=== PATIENT | male | born 1995 | race Caucasian/White ===

== ENCOUNTER 2020-04-25 19:36 | Inpatient (IN) | payer BC, OTHER ==
--- NOTE | 2020-04-25 20:27 | ED ---
Psych HPI - General Chief Complaint: Psychiatric Symptoms Stated Complaint: Mental Health Time Seen by Provider: 04/25/20 19:57 Source: patient, family Mode of arrival: ambulatory - History of Present Illness Initial Comments: 24-year-old male patient presents to the emergency department today for evaluation of suicidal ideation. Patient states he has been quite depressed for the last few months. States over the last 2 weeks he has been having increased thoughts of suicide. 2 days ago patient did wrap about around his neck and cinched it and went to sleep. Patient states that he must have had a tight enough that he woke up couple hours later so he took it off. Patient states that over the last 2 days to thoughts of suicide have been increasing. He states he has many ways that he could do about has no particular plan. Patient is not currently seeing a counselor or psychiatrist. Does not take any medications. Patient denies any alcohol use. Does admit to smoking marijuana. Denies any current physical symptoms or concerns. Patient denies any recent rash, fever, chills, cough, shortness of breath, chest pain, abdominal pain, nausea, vomiting, diarrhea, constipation, back pain, numbness, tingling, dizziness, weakness, hematuria, dysuria, urinary urgency, urinary frequency, headache, visual changes, or any other complaints. - Related Data Home Medications Medication Instructions Recorded Confirmed No Known Home Medications 06/07/15 06/07/15 Allergies Allergy/AdvReac Type Severity Reaction Status Date / Time No Known Allergies Allergy Verified 06/07/15 18:20 Review of Systems ROS Statement: Those systems with pertinent positive or pertinent negative responses have been documented in the HPI. ROS Other: All systems not noted in ROS Statement are negative. Past Medical History Past Medical History: No Reported History History of Any Multi-Drug Resistant Organisms: None Reported Past Surgical History: No Surgical Hx Reported Past Psychological History: No Psychological Hx Reported Smoking Status: Never smoker Past Alcohol Use History: None Reported Past Drug Use History: None Reported General Exam Limitations: no limitations General appearance: alert, in no apparent distress, other (This is a well- developed, well-nourished adult male patient in no acute distress. Vital signs upon presentation are temperature 98.0F, pulse 79, respirations 18, blood pressure 149/94, pulse ox 99% on room air.) Eye exam: Present: normal appearance, PERRL, EOMI. Absent: scleral icterus, conjunctival injection, periorbital swelling ENT exam: Present: normal exam, normal oropharynx, mucous membranes moist Respiratory exam: Present: normal lung sounds bilaterally. Absent: respiratory distress, wheezes, rales, rhonchi, stridor Cardiovascular Exam: Present: regular rate, normal rhythm, normal heart sounds. Absent: systolic murmur, diastolic murmur, rubs, gallop, clicks GI/Abdominal exam: Present: soft, normal bowel sounds. Absent: distended, tenderness, guarding, rebound, rigid Neurological exam: Present: alert, oriented X3, CN II-XII intact Psychiatric exam: Present: depressed, suicidal ideation. Absent: homicidal ideation Skin exam: Present: warm, dry, intact, normal color. Absent: rash Course Vital Signs 04/25/20 19:46 Temperature 98.0 F Pulse Rate 79 Respiratory 18 Rate Blood Pressure 149/94 O2 Sat by Pulse 99 Oximetry Medical Decision Making - Medical Decision Making 24-year-old male patient presents to the emergency department today for evaluation of suicidal ideation. Physical examination is unremarkable. He was cleared medically and evaluated by emergency psychiatric services. It is felt that he would benefit from inpatient admission and will be transferred to a mental health unit. - Lab Data Lab Results 04/25/20 Range/Units 20:07 Urine Opiates Screen Not Detected (NotDetected) Ur Oxycodone Screen Not Detected (NotDetected) Urine Methadone Screen Not Detected (NotDetected) Ur Propoxyphene Screen Not Detected (NotDetected) Ur Barbiturates Screen Not Detected (NotDetected) U Tricyclic Antidepress Not Detected (NotDetected) Ur Phencyclidine Scrn Not Detected (NotDetected) Ur Amphetamines Screen Not Detected (NotDetected) U Methamphetamines Scrn Not Detected (NotDetected) U Benzodiazepines Scrn Not Detected (NotDetected) Urine Cocaine Screen Not Detected (NotDetected) U Marijuana (THC) Screen Detected H (NotDetected) Disposition Clinical Impression: Suicidal ideation Disposition: TRANSFER TO PSYCH HOSP/UNIT Condition: Serious Referrals: None,Stated [Primary Care Provider] - 1-2 days - Out of Hospital Transfer - Req. Specs Out of Hospital Transfer - Requested Specifics: [facility])
[2020-04-25 20:35] LABS: Amphetamine Screen,Urine Not Detected (NotDetected); Barbiturate Screen,Urine Not Detected (NotDetected); Benzodiazepines Screen,Urine Not Detected (NotDetected); Cocaine Screen,Urine Not Detected (NotDetected); Methadone Screen, Urine Not Detected (NotDetected); Opiate Screen,Urine Not Detected (NotDetected); Oxycodone Screen, Urine Not Detected (NotDetected); Phencyclidine Screen,Urine Not Detected (NotDetected); Tricyclic Antidepressant,Urine Not Detected (NotDetected); Urn Cannabinoid Scrn Detected (NotDetected)
[2020-04-25] MEDS ORDERED: LORazepam 1 MG TAB PO PRN (22:30)
[2020-04-25] MEDS ORDERED: ACETAMINOPHEN TAB 325 MG TAB PO PRN (22:30)
[2020-04-25] MEDS ORDERED: ZIPRASIDONE 20 MG VIAL IM PRN (22:30)
[2020-04-25] MEDS ORDERED: MAGNESIUM HYDROXIDE 2,400 MG/10 ML CUP PO PRN (22:30)
[2020-04-25] MEDS ORDERED: MAG HYDROX/AL HYDROX/SIMETH 30 ML CUP PO PRN (22:30)
[2020-04-26 08:04] LABS: Basophils # (A) 0.1 k/uL (0-0.2); Basophils % (A) 1 %; Eosinophils # (A) 0.2 k/uL (0-0.7); Eosinophils % (A) 2 %; HCT 49.7 % (39.0-53.0); HGB 16.4 gm/dL (13.0-17.5); Lymphocytes # (A) 2.5 k/uL (1.0-4.8); Lymphocytes % (A) 38 %; MCH 30.6 pg (25.0-35.0); MCHC 33.1 g/dL (31.0-37.0); MCV 92.6 fL (80.0-100.0); Mean Platelet Volume 7.2; Monocytes # (A) 0.3 k/uL (0-1.0); Monocytes % (A) 4 %; Neutrophils # (A) 3.5 k/uL (1.3-7.7); Neutrophils % (A) 53 %; Platelet Count 278 k/uL (150-450); RBC 5.37 m/uL (4.30-5.90); RDW 12.3 % (11.5-15.5); WBC 6.6 k/uL (3.8-10.6)
[2020-04-26 08:22] LABS: ALT 27 U/L (4-49); AST 25 U/L (17-59); African American GFR (CKD) >90 (>60 ml/min/1.73 sqM); Albumin 4.3 g/dL (3.5-5.0); Alkaline Phosphatase 64 U/L (38-126); Anion Gap 8 mmol/L; Blood Urea Nitrogen 11 mg/dL (9-20); Calcium 9.1 mg/dL (8.4-10.2); Carbon Dioxide 27 mmol/L (22-30); Chloride 105 mmol/L (98-107); Cholesterol 156 mg/dL (<200); Glucose 91 mg/dL (74-99); HDL Cholesterol 39 mg/dL (40-60); LDL Cholesterol,Calculated 98 mg/dL (0-99); Non-African American GFR(CKD) >90 (>60 ml/min/1.73 sqM); Potassium 4.3 mmol/L (3.5-5.1); Sodium 140 mmol/L (137-145); Total Bilirubin 0.8 mg/dL (0.2-1.3); Total Protein 6.7 g/dL (6.3-8.2); Triglycerides 97 mg/dL (<150)
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
[2020-04-26] MEDS: SERTRALINE 50 MG TAB PO SCH (12:08)
[2020-04-26] MEDS: PANTOPRAZOLE 40 MG TABLET PO SCH (12:08)
[2020-04-26] MEDS: MELATONIN 5 MG TABLET PO SCH (20:19)
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
[2020-04-27 07:08] VITALS: PULSE 64
[2020-04-27] MEDS: SERTRALINE 50 MG TAB PO SCH (08:27)
[2020-04-27] MEDS: PANTOPRAZOLE 40 MG TABLET PO SCH (08:27)
--- NOTE | 2020-04-27 09:34 | P.PN ---
Progress Note - Text Progress Note Date: 04/27/20 Interval History: Patient was seen [wandering the hallways] and was directable and agreeable to speak with engineering writer in the office. Patient continues to appear to be depressed however was more verbal today and claimed that he was feeling "a bit better" with regard to his mood. He continues to endorse some depressed thoughts and worthlessness. He states that he has been doing "a lot of reading on Zoloft" and had several questions for engineering writer about the side effects of the medications and concerns. Patient complains that he has been taking the medications as prescribed except for the melatonin as he states that he does not needed for sleep. He states that he has been speaking with other patients on the unit and has been going to groups and has been finding them helpful. He states that he is able sleep throughout the night. He asked about potential discharge. He claims it is a fair appetite. At this time patient denies any suicidal or homical ideations, intent or plan. Patient denies any auditory, visual hallucinations and denies any paranoia or delusions. Patient denies any side effects from the medications and has been compliant with meds. Mental Status Exam: General Appearance: Patient appears to be stated age is alert, directable, and attempts to cooperate. Patient appears to have poor hygiene and grooming. Behavior: Patient is seated without any agitated behavior. Depressed affect. Speech: Patient's speech is fluent and nonpressured. Soft tone of voice. Mood/Affect: Patient reports their mood is "a bit better", affect is congruent and has a depressed affect. Suicidality/Homicidality: Patient denies having any homicidal ideation intent or plan. Denies any suicidal ideations intent or plan Perceptions: Patient denies any visual hallucinations and denies any auditory hallucinations Though content/process: There is no evidence of any delusional thought content and thought process is linear and goal-directed. Feelings worthlessness. Memory and concentration: AOX3, grossly intact for the purposes of this session. Judgment and insight: Fair Assessment Major depressive disorder, without psychotic features Anxiety disorder unspecified Cannabis use disorder Plan: -Patient continues to meet criteria for inpatient psychiatric admission for symptom stabilization and safety. Patient has signed [adult voluntary form and] medication consent and was placed in patient's chart. -Medications: We'll increase Zoloft to 100 mg daily for mood/anxiety. Continue with melatonin 5 mg nightly for sleep. -When necessary Ativan and Geodon for agitation/aggression. -NRT - not need this patient does not smoke. -SW on board for discharge planning. Encouraged the patient to participate in milieu. Likely discharge in 2-3 days.
[2020-04-27 12:30] VITALS: BMI 18.3
[2020-04-27] MEDS: MELATONIN 5 MG TABLET PO SCH (21:37)
[2020-04-28] MEDS: PANTOPRAZOLE 40 MG TABLET PO SCH (07:48)
[2020-04-28] MEDS ORDERED: SERTRALINE 100 MG TAB PO SCH (09:00)
--- NOTE | 2020-04-28 12:41 | P.DS ---
Providers Date of admission: 04/25/20 22:21 Expected date of discharge: 04/28/20 Attending physician: Shay Oliver MD Consults: 04/25/20 22:30 Consult Physician Routine Consulting Provider: Rohit Gallegos Consult Reason/Comments: medical management Do you want consulting provider notified?: Yes Primary care physician: Stated None - Discharge Diagnosis(es) (1) Major depressive disorder without psychotic features Current Visit: Yes Status: Acute Priority: High (2) Anxiety disorder, unspecified Current Visit: Yes Status: Acute Priority: Medium (3) Cannabis abuse Current Visit: Yes Status: Acute Priority: Low Hospital Course: Admission HPI: Patient is a 24-year-old male who currently lives in an apartment with 2 roommates and 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 Patient presented to the hospital yesterday with complaints of suicidal thoughts and depression. Patient stated according to ER report that the depression and suicidal thoughts have gradually been increasing within the past few months. Report also states that patient 2 days ago wrapped a cord around his neck and went to sleep and woke up 2 hours later. Patient's UDS was positive for marijuana. Patient was seen today for psychiatric evaluation was agreeable to speak with com writer. Patient appeared to have poor hygiene and grooming however was calm and cooperative during interview. Patient appeared to have a depressed affect and spoke in a soft tone of voice. He spoke about his ongoing depression and the suicide attempt and states that he was "going down that bad path" once again thinking about how he can attempt suicide again at home before he decided to come into the hospital. He states that his 6 year relationship with his girlfriend ended 7 months ago and claims that it's been difficult working with her and "the guys she cheated with" at his work. He states that she is unpredictable and is nice to him some days and other days not. He states that he has been dealing with feelings of loneliness and worthlessness. He claims of poor support from his family and find it difficult to work with both of them. He states that he's been sleeping approximately 5 hours a night and claims that he is "always on the go". He spoke about having difficulties recently trying to evict one of his tenants and feels "bad about it". He admits to fair appetite fair concentration and endorses guilt and anhedonia. He also admits to anxiety. Patient denies any suicidal or homicidal ideations intent or plan. At this time patient denies any auditory or visual hallucinations. Patient denies any flight of ideas racing thoughts and increased in goal directed behavior. Patient admits to using marijuana daily to help with sleep and denies using any cigarettes or any other recreational drugs. Hospital course: Upon admission to the unit patient was initially depressed and anxious. Patient was however directable and agreeable to commence treatment. Patient got along well with other patients on the unit and followed unit protocol. Patient was compliant with the medications and denied any side effects throughout hospital course. Patient was started on Zoloft and titrated to a dose of 100 mg daily for mood/anxiety. Patient was also started on melatonin however patient did not take this medication while on the unit. Patient was also started on Protonix for acid reflux. Patient spoke of his stressors and engaged in therapy both group and individual. Patient was also seen by medical team for history and physical exam. Throughout the course of the hospitalization patient gradually improved with regards to mood, anxiety, sleep and became future oriented with improved insight and judgment. On the day of discharge patient denied any suicidal or homicidal ideations intent or plan denied any auditory or visual hallucinations. Patient endorsed wanting to live for his future and his family. The patient denied any access to guns or weapons. Patient denied any paranoia and did not endorse any delusions. Patient does have a significant history of substance abuse and was counseled on abstaining from all substances including alcohol and marijuana. Patient claims that he would like to cut back on marijuana use himself and declined rehab. Patient was also counseled on the medications and need for regular compliance and was encouraged to follow-up with their outpatient appointment for mental health and also for primary care. Prior to discharge a family meeting will be arranged by long term care social worker to answer any questions and ensure safety upon discharge. ornamental iron worker helper will reach out to patient's grandfather Romain at [phone] to ensure safety upon discharge and continue monitoring for any behavioral changes and need for medication compliance and outpatient follow-up. Mental status exam: General Appearance: Patient appears to be thin, stated age is alert, pleasant, and cooperative. Patient is in no acute distress and has fair hygiene and grooming Behavior: Patient is calmly seated without any agitated behavior. Cooperative. Speech: Patient's speech is fluent and nonpressured. Mood/Affect: Patient reports their mood is "better", affect is congruent and euthymic. Suicidality/Homicidality: Patient denies having any suicidal or homicidal ideation intent or plan. Perceptions: Patient denies any auditory or visual hallucinations. Though content/process: There is no evidence of any delusional thought content and thought process is linear and goal-directed. more future oriented Memory and concentration: AOX3, grossly intact for the purposes of this session. Can spell "WORLD" backwards correctly. Judgment and insight: Improved with guarded prognosis Impression: Major depressive disorder, without psychotic features Anxiety disorder unspecified Cannabis use disorder Plan: -Continue with discharge today as patient has improved and stabilized psychiatrically and is not currently an imminent threat to himself and/or others. -Continue medications: Zoloft 100 mg daily for mood/anxiety. -Patient was counseled on the need for medication compliance and appropriate follow-up at mental health and also primary care for medical issues. Patient verbalized understanding and agreed. -Social work to arrange for and conduct family meeting with patient's grandfather to ensure safety upon discharge and answer any questions/concerns. Social work also to arrange for patients follow up appointments with [facility] for psychiatric care along with follow up with primary care provider. Patient is also recommended to commence individual therapy as an outpatient. -Patient counseled on abstaining from recreational drugs and marijuana and alcohol. Was informed/educated on the adverse effects on their physical and mental health. Patient verbally agreed and understood. Patient was offered substance abuse treatment however declined at this time one to cut back on his own. -Patient was instructed to return to the hospital or seek immediate medical care if their psychiatric or medical symptoms do worsen or reoccur. Allergies Allergy/AdvReac Type Severity Reaction Status Date / Time No Known Allergies Allergy Verified 04/25/20 22:41 Laboratory Results WBC 6.6 k/uL (3.8-10.6) 04/26/20 07:28 RBC 5.37 m/uL (4.30-5.90) 04/26/20 07:28 Hgb 16.4 gm/dL (13.0-17.5) 04/26/20 07:28 Hct 49.7 % (39.0-53.0) 04/26/20 07:28 MCV 92.6 fL (80.0-100.0) 04/26/20 07:28 MCH 30.6 pg (25.0-35.0) 04/26/20 07: MCHC 33.1 g/dL (31.0-37.0) 04/26/20 07:28 RDW 12.3 % (11.5-15.5) 04/26/20 07:28 Plt Count 278 k/uL (150-450) 04/26/20 07:28 Neutrophils % 53 % 04/26/20 07:28 Lymphocytes % 38 % 04/26/20 07:28 Monocytes % 4 % 04/26/20 07:28 Eosinophils % 2 % 04/26/20 07: Basophils % 1 % 04/26/20 07:28 Neutrophils # 3.5 k/uL (1.3-7.7) 04/26/20 07:28 Lymphocytes # 2.5 k/uL (1.0-4.8) 04/26/20 07:28 Monocytes # 0.3 k/uL (0-1.0) 04/26/20 07:28 Eosinophils # 0.2 k/uL (0-0.7) 04/26/20 07:28 Basophils # 0.1 k/uL (0-0.2) 04/26/20 07:28 Sodium 140 mmol/L (137-145) 04/26/20 07:28 Potassium 4.3 mmol/L (3.5-5.1) 04/26/20 07:28 Chloride 105 mmol/L (98-107) 04/26/20 07:28 Carbon Dioxide 27 mmol/L (22-30) 04/26/20 07:28 Anion Gap 8 mmol/L 04/26/20 07:28 BUN 11 mg/dL (9-20) 04/26/20 07:28 Creatinine 0.83 mg/dL (0.66-1.25) 04/26/20 07:28 Est GFR (CKD-EPI)AfAm >90 (>60 ml/min/1.73 sqM) 04/26/20 07:28 Est GFR (CKD-EPI)NonAf >90 (>60 ml/min/1.73 sqM) 04/26/20 07:28 Glucose 91 mg/dL (74-99) 04/26/20 07:[address] Glu mg/dL 97 04/26/20 07:28 Hemoglobin A1c 5.0 % (4.0-6.0) 04/26/20 07: Calcium 9.1 mg/dL (8.4-10.2) 04/26/20 07: Total Bilirubin 0.8 mg/dL (0.2-1.3) 04/26/20 07: AST 25 U/L (17-59) 04/26/20: ALT 27 U/L (4-49) 04/26/20 07: Alkaline Phosphatase 64 U/L (38-126) 04/26/20 07: Total Protein 6.7 g/dL (6.3-8.2) 04/26/20 07: Albumin 4.3 g/dL (3.5-5.0) 04/26/20 07: Triglycerides 97 mg/dL (<150) 04/26/20 07: Cholesterol 156 mg/dL (<200) 04/26/20 07: LDL Cholesterol, Calc 98 mg/dL (0-99) 04/26/20 07: HDL Cholesterol 39 mg/dL (40-60) L 04/26/20 07: TSH 1.170 mIU/L (0.465-4.680) 04/26/20 07:28 Urine Opiates Screen Not Detected (NotDetected) 04/25/20 20:07 Ur Oxycodone Screen Not Detected (NotDetected) 04/25/20 20:07 Urine Methadone Screen Not Detected (NotDetected) 04/25/20 20:07 Ur Propoxyphene Screen Not Detected (NotDetected) 04/25/20 20:07 Ur Barbiturates Screen Not Detected (NotDetected) 04/25/20 20:07 U Tricyclic Antidepress Not Detected (NotDetected) 04/25/20 20:07 Ur Phencyclidine Scrn Not Detected (NotDetected) 04/25/20 20:07 Ur Amphetamines Screen Not Detected (NotDetected) 04/25/20 20:07 U Methamphetamines Scrn Not Detected (NotDetected) 04/25/20 20:07 U Benzodiazepines Scrn Not Detected (NotDetected) 04/25/20 20:07 Urine Cocaine Screen Not Detected (NotDetected) 04/25/20 20:07 U Marijuana (THC) Screen Detected (NotDetected) H 04/25/20 20:07 Vital Signs Temp 98.1 F 04/28/20 06:54 Pulse 64 04/28/20 06:54 Resp 14 04/28/20 06:54 BP 129/76 04/28/20 06:54 Pulse Ox 98 04/27/20 07:07 Intake & Output 04/27/20 04/28/20 04/28/20 18:59 06:59 18:59 Weight 59.874 kg Patient Condition at Discharge: Stable Plan - Discharge Summary New Discharge Prescriptions: New Pantoprazole [Protonix] 40 mg PO AC-BRKFST 30 Days tablet. Acetaminophen Tab [Tylenol] 650 mg PO Q4HR PRN tab PRN Reason: Pain/Discomfort Sertraline [Zoloft] 100 mg PO DAILY 30 Days tab Discontinued Esomeprazole Magnesium [NexIUM 24Hr] 20 mg PO DAILY PRN PRN Reason: acid reflux Discharge Medication List Acetaminophen Tab [Tylenol] 650 mg PO Q4HR PRN tab 04/28/20 [Rx] Pantoprazole [Protonix] 40 mg PO AC-BRKFST 30 Days tablet. 04/28/20 [Rx] Sertraline [Zoloft] 100 mg PO DAILY 30 Days tab 04/28/20 [Rx] Follow up Appointment(s)/Referral(s): [facility] - [facility]20 1:00 pm (Edita Rubin Please arrive 30 minutes early for paperwork and bring photo ID and insurance card) [facility] [NON-STAFF] - 1 Week Patient Instructions/Handouts: Depression (DC), Anxiety (GEN), Suicide Prevention (DC) Activity/Diet/Wound Care/Special Instructions: Activity and diet as tolerated. Avoid the use of street drugs and alcohol. Take all medications as prescribed. When you are in need of refills on your medications please contact your medical provider and/or outpatient psychiatrist to have this done. Please go to scheduled outpatient appointment for aftercare treatment. If symptoms return or become worse, call the crisis line at and/or go to the nearest emergency room for evaluation Discharge Disposition: HOME SELF-CARE
[2020-04-30 07:39] VITALS: BP 129/76; RESP 14; TEMP 98.1
== END 2020-04-28 13:20 | disposition home or self-care (01) | DRG 881 ==
LOC: EC 19:36 → 3MHU 22:21
PROVIDERS: ADMIT Psychiatry & Neurology Psychiatry; ATTEND Psychiatry & Neurology Psychiatry
DX: F32.9 Major depressive disorder, single episode, unspecified (principal); R45.851 Suicidal ideations; F12.10 Cannabis abuse, uncomplicated; F41.9 Anxiety disorder, unspecified; K21.9 Gastro-esophageal reflux disease without esophagitis
CPT/HCPCS: 80053; 80061; 80306; 82075; 83036; 84443; 85025; 99285